=== PATIENT | female | born 1985 | race Caucasian/White ===

== ENCOUNTER 2020-09-12 19:07 | Inpatient (IN) | payer OTHER, SELFPAY ==
[~2020-09-12] VITALS: Ht 165.1 cm; Wt 86.6 kg
[2020-09-12 19:13] VITALS: BP 150/90
--- NOTE | 2020-09-12 19:16 | NUR ---
ERMD ASSESSED PATIENT IN TRIAGE. PATIENT AMBULATED TO [facility] WITH STEADY GAIT.
[2020-09-12] MEDS ORDERED: ALBUTEROL 0.083% 2.5 MG/3 ML NEBU INH ONE ×2 (19:20→20:05)
[2020-09-12] MEDS ORDERED: predniSONE 20 MG TAB PO ONE (19:20)
[2020-09-12] MEDS ORDERED: ALBUTEROL SULFATE/IPRATROPIU 3 ML SOL IH ONE (19:20)
--- NOTE | 2020-09-12 19:25 | NUR ---
PATIENT 34 Y/O FEMALE BIB SELF FOR C/O ADULT ASTHMA ATTACK. PER PATIENT INHALER IS INEFFECTIVE. PATIENT HAS HAD SOB X 1 DAY. PATIENT NOTED WITH EXPIRATORY WHEEZING THROUGH A/P BILAT LUNGS. O2SAT@ 97% ON RA. PATIENT DENIES CP. PATIENT 30 WEEKS . DENIES COMPLICATIONS WITH . SEE COMPLETE ASSESMENT FOR FUTHER DETAILS. MEDHX: ASTHMA ALLERGIES: NKA
--- NOTE | 2020-09-12 19:39 | NUR ---
RT AT BEDSIDE PROVIDING BREATHING TREATMENT.
[2020-09-12] MEDS ORDERED: MAG SULF 2000 MG/WATER PREMIX 50 ML IV ONE (20:15)
[2020-09-12 20:36] LABS: BASOPHILS % (AUTO) 0.3 % (0.0-2.0); EOSINOPHILS # (AUTO) 0.7 K/uL (0-0.4); EOSINOPHILS % (AUTO) 4.6 % (0.0-4.0); HEMATOCRIT 37.2 % (36-48); HEMOGLOBIN 12.5 g/dL (12.0-16.0); LYMPHOCYTES # (AUTO) 2.4 K/uL (2.5-16.5); LYMPHOCYTES % (AUTO) 16.3 % (20.5-51.1); MEAN CORPUSCULAR HEMOGLOBIN 29 pg (27-31); MEAN CORPUSCULAR HGB CONC 34 g/dL (33-37); MEAN CORPUSCULAR VOLUME 85.2 fL (80-94); MONOCYTES % (AUTO) 6.5 % (1.7-9.3); NEUTROPHILS # (AUTO) 10.8 K/uL (1.8-7.7); NEUTROPHILS % (AUTO) 72.3 % (42.2-75.2); PLATELET COUNT (AUTO) 291 K/uL (140-450); RED BLOOD CELL COUNT(AUTO) 4.37 MIL/uL (4.20-5.40); RED CELL DISTRIBUTION WIDTH 14.5 % (11.6-13.7); WHITE BLOOD COUNT (AUTO) 14.9 K/uL (4.8-10.8)
[2020-09-12 20:42] LABS: ANION GAP 15.6 (8-16); CARBON DIOXIDE 19.9 mmol/L (21-32); CREATININE 0.7 mg/dL (0.6-1.3); POTASSIUM 3.5 mmol/L (3.5-5.1)
--- NOTE | 2020-09-12 20:45 | NUR ---
L&D NURSE AT BEDSIDE AND PREPARING APTIENT FOR CONTINOUS FHT MONITOR. PATIEN REMAINS ONCARDIAC MONITOR. VSS. PATIENT TO RECIVE MAG SULFATE IV 2G. IV AITE REMAINS PATIENT.
[2020-09-12] MEDS ORDERED: KCL 20 MEQ/WATER INJ PREMIX 200 ML IV PRN (20:55)
[2020-09-12] MEDS ORDERED: ACETAMINOPHEN 325 MG TAB PO PRN (20:55)
[2020-09-12] MEDS ORDERED: MAG SULF 2000 MG/WATER PREMIX 50 ML IV PRN (20:55)
[2020-09-12] MEDS ORDERED: ONDANSETRON 4 MG/2 ML VIAL IVP PRN (20:55)
[2020-09-12] MEDS ORDERED: POTASSIUM CHLORIDE 10 MEQ TABER PO PRN (20:55)
[2020-09-12] MEDS ORDERED: MAGNESIUM OXIDE 400 MG TAB PO PRN (20:55)
[2020-09-12] MEDS ORDERED: ALBUTEROL 0.083% 2.5 MG/3 ML NEBU INH PRN (21:15)
[2020-09-12] MEDS ORDERED: DIPH25CA86 PO (21:35)
[2020-09-12] MEDS ORDERED: PRED1TAB2 PO (21:35)
[2020-09-12] MEDS ORDERED: PRON INH (21:35)
[2020-09-12] MEDS ORDERED: MONT10TA35 PO (21:35)
[2020-09-12] MEDS ORDERED: BECL10.62 IH (21:35)
--- NOTE | 2020-09-12 21:39 | NUR ---
PATIENT STILL NOTED WITH SLIGHT RESPIRATORY WHEEZING UPON EXPIRATON. RESPIRATIONS ARE EVEN AND UNLABORED. O2SAT@ 97% ON RA. PATIENT SKIN IS WARM AND DRY TO TOUCH. PATIENT STATES, "I FEEL SO MUCH BETTER NOW." PATIENT REMAINS ON TELE MONITOR AND TOCO MONITOR. L&D CHARGE NURSE AT BEDSIDE MONITORING FHT. PATIENT DENIES ANY PELVIC PAIN AT THIS TIME.
--- NOTE | 2020-09-12 22:20 | NUR ---
Patient will be admitted to care of . Admited to TELE. Will go to room 106B. Belongings list completed. Report to BRENDAN ANTHONY.
[2020-09-12 22:30] VITALS: BP 120/63
--- NOTE | 2020-09-12 22:30 | NUR ---
RECEIVED REPORT FROM ER NURSE. PATIENT IS ALERT ORIENTED X4, AWAKE, COOPERATVE, 30 WEEKS WITH DIAGNOSIS OF ASTHMA. HAD EPISODES OF SHORTNESS OF BREATH TODAY. RESPIRATION EVEN AND UNLABORED. NO DISTRESS NOTED. BOWEL SOUND PRESENT IN ALL FOUR QUADRANT. ON MONITORING. MRSA NARES SWAB DONE .ABDOMEN SOFT NON TENDER, LAST BM TODAYPLAN OF CARE WAS DISCUSSED. ALL SAFETY MEASURES IN PLACE. ORIENTED PT TO STAFF, ROOM. CALL LIGHT WITHIN REACH. VITAL SIGNS MONITORED. WILL CONTINUE TO MONITOR.
[2020-09-12] MEDS: methylPREDNISolone SS 40 MG/ML VIAL IVP SCH (23:45)
[2020-09-13] MEDS ORDERED: ALBUTEROL 0.083% 2.5 MG/3 ML NEBU INH PRN (00:35)
--- NOTE | 2020-09-13 00:39 | NUR ---
SPOKE WITH RT WHOM RECOMMENDS PT HAVE NEBULIZER TREATMENT Q4HRS INSTEAD OF Q 6HRS. CALLED LITIGATION COUNSEL MD AWAN SAID IT WAS OK TO CHANGE TIMES FROM 6HRS TO 4HRS.
[2020-09-13 04:00] VITALS: BP 103/64
[2020-09-13] MEDS: methylPREDNISolone SS 40 MG/ML VIAL IVP SCH ×2 (05:27→12:44)
[2020-09-13 06:41] LABS: HEMATOCRIT 38.4 % (36-48); HEMOGLOBIN 12.8 g/dL (12.0-16.0); LYMPHOCYTES # (AUTO) 0.8 K/uL (2.5-16.5); LYMPHOCYTES % (AUTO) 6.8 % (20.5-51.1); MEAN CORPUSCULAR HEMOGLOBIN 29 pg (27-31); MEAN CORPUSCULAR HGB CONC 33 g/dL (33-37); MEAN CORPUSCULAR VOLUME 86.9 fL (80-94); MONOCYTES # (AUTO) 0.1 K/uL (0.8-1.0); MONOCYTES % (AUTO) 1.2 % (1.7-9.3); NEUTROPHILS # (AUTO) 11.4 K/uL (1.8-7.7); PLATELET COUNT (AUTO) 301 K/uL (140-450); RED BLOOD CELL COUNT(AUTO) 4.42 MIL/uL (4.20-5.40); RED CELL DISTRIBUTION WIDTH 14.4 % (11.6-13.7); WHITE BLOOD COUNT (AUTO) 12.4 K/uL (4.8-10.8)
--- NOTE | 2020-09-13 07:15 | NUR ---
RECEIVED REPORT FROM NIGHT NURSE PATIENT IS AAOX4 ON ROOM AIR, AMBULATORY, SKIN INTACT, ON REGULAR DIET AND 30 WKS GESTATION. WITH RIGHT LOWER MONITORING BABY'S HR AT 150BPM, BREATHING TREATMENT AND NIGHT NURSE HELD HEPARIN PROPHYLAXIS. SAFETY MEASURES IN PLACE AND CALL LIGHT WITHIN REACH. WILL CONTINUE TO MONITOR.
[2020-09-13 07:44] LABS: ALBUMIN 2.7 g/dL (3.4-5.0); ANION GAP 18.3 (8-16); CARBON DIOXIDE 19.1 mmol/L (21-32); CREATININE 0.4 mg/dL (0.6-1.3); MAGNESIUM 2.2 mg/dL (1.8-2.4); POTASSIUM 4.4 mmol/L (3.5-5.1); TOTAL BILIRUBIN 0.7 mg/dL (0.0-1.0)
[2020-09-13 08:00] VITALS: BP 112/64
--- NOTE | 2020-09-13 08:19 | NUR ---
PATIENT HAS BEEN SCREENED AND CATEGORIZED LOW NUTRITION RISK. PATIENT WILL BE SEEN WITHIN 7 DAYS OF ADMISSION. 09/19/[address]
--- NOTE | 2020-09-13 08:45 | NUR ---
PATIENT VERBALIZES UN ABLE TO DRINK MILK LACTOSE INTOLERANCE OR ALLERGY.
--- NOTE | 2020-09-13 10:24 | NUR ---
SOCIAL WORK NOTE Patient's Orientation Unable To Assess Information Provided By HOWIE OTERO - SIGNIFICANT OTHER Comments SW WAS UNABLE TO MEET PATIENT AT BEDSIDE. SW COMPLETED ASSESSMENT WITH PATIENT'S SIGNIFICANT OTHER. Complaint Investigations Officer, Realtionship and Phone Number HOWIE OTERO SIGNIFICANT OTHER [phone] Healthcare Power of Executive Admin No Does Patient Have a POLST No Identifying Problems No Social Work Triggers Is A Social Work Consult Needed No Mandate Report Filed No Explanation Of Identifying Problems PATIENT IS A 34-YEAR-OLD FEMALE ADMITTED FOR ACUTE ASTHMA EXACERBATION. PATIENT HAS PMHX OF ASTHMA. PATIENT'S SIGNIFICANT OTHER REPORTED NO HX OF MENTAL HEALTH OR SUBSTANCE ABUSE. Admitted From Home Pre-Admission Level Of Functioning Status Independent/Ambulatory Prior Resources/Services Used In Last 12 Months No Prior Resources Used Prior DME No Prior DME Used Dialysis Comments N/A Living Situation Lives With Family House Patient Had Caregiver No Home Support No Caregiver Issues Financial Issues No Known Financial Issue Referral To The Financial Counselor Needed No Factors/Needs No D/C Needs Identified Pt/Rep Participated In Discharge Plan Yes Patient/Family Agress With Discharge Plan Yes Discharge Plan Comments TENTATIVE DISCHARGE PLAN IS FOR PATIENT TO RETURN HOME. DC Plan Status Initiated
--- NOTE | 2020-09-13 11:46 | NUR ---
INFORMED DR VELIZ THRU DR MARTIN ABOUT PATIENT BEING DISCHARGE TO HOME BY DR MILLER. DR VELIZ SAID OK TO DISCHARGE PATIENT IF STABLE.
--- NOTE | 2020-09-13 12:47 | NUR ---
DISCHARGE PLANNING: MANDO MADE FOLLOW UP APPOINTMENT WITH PATIENT'S PCP. MANDO CONTACTED DOCTORS OFFICE AND SPOKE WITH ESTELLE. PATIENT WILL SEE DR. ROSSANA GARCIA AT [address] [facility] [place] [address]. APPOINTMENT IS ON 09/20/2020 AT 08:40AM.
--- NOTE | 2020-09-13 12:56 | NUR ---
MEDICATION DUE GIVEN PT ABLE TO TOLERATE WELL.
--- NOTE | 2020-09-13 13:00 | NUR ---
DISCHARGED INSTRUCTION GIVEN TO PATIENT AT BEDSIDE. INSTRUCTED TO CONTINUE MEDICATIONS AND TO SEEK MEDICAL HELP IN CASE OF EMERGENCIES AND INSTRUCTED TO FOLLOW UP WITH PCP AFTER DISCHARGE. REMOVED ID BANDS AND IV INTACT AND NO BLEEDING. CHANGED TO OWN CLOTHES AND TOOK ALL HER BELONGINGS. ESCORTED TO FRONT LOBBY VIA WHEELCHAIR.PT IS DISCHARGED HOME. PT IS STABLE.
== END 2020-09-13 13:00 | disposition home or self-care (01) | DRG 566 ==
LOC: MED 19:07 → MTU 21:09
PROVIDERS: ADMIT Hospitalist; ATTEND Hospitalist
DX: O99.513 Diseases of the respiratory system complicating pregnancy, third trimester (principal); J45.901 Unspecified asthma with (acute) exacerbation; Z20.822 Contact with and (suspected) exposure to COVID-19; Z3A.30 30 weeks gestation of pregnancy
CPT/HCPCS: 36415; 80048; 80053; 83735; 85025; 87081; 94640; 96365; 99285; J2920; J3475; J7512; J7613

== ENCOUNTER 2020-11-07 14:56 | Inpatient (IN) | payer OTHER, SELFPAY ==
[~2020-11-07] VITALS: Ht 162.6 cm; Wt 84.8 kg
[~2020-11-07 14:56] MED LIST: BECL10.62 IH; DIPH25CA86 PO; MONT10TA35 PO; PRED1TAB2 PO; PRON INH
[2020-11-07 15:30] VITALS: BP 115/65
[2020-11-07] MEDS ORDERED: PNV91TAB10 PO (16:18)
[2020-11-07] MEDS ORDERED: METHYLERGONOVINE 0.2 MG/ML AMP IM PRN (17:05)
[2020-11-07] MEDS ORDERED: CARBOPROST 250 MCG/ML AMP IM PRN (17:05)
[2020-11-07] MEDS ORDERED: MORPHINE SULFATE 5 MG/ML VIAL IVP PRN (17:10)
[2020-11-07] MEDS ORDERED: ONDANSETRON 4 MG/2 ML VIAL IVP PRN (17:10)
[2020-11-07 17:22] LABS: BASOPHILS % (AUTO) 0.1 % (0.0-2.0); EOSINOPHILS % (AUTO) 0.1 % (0.0-4.0); HEMATOCRIT 38.9 % (36-48); HEMOGLOBIN 13.2 g/dL (12.0-16.0); LYMPHOCYTES % (AUTO) 7.6 % (20.5-51.1); MEAN CORPUSCULAR HEMOGLOBIN 29 pg (27-31); MEAN CORPUSCULAR HGB CONC 34 g/dL (33-37); MEAN CORPUSCULAR VOLUME 86.2 fL (80-94); MONOCYTES # (AUTO) 0.3 K/uL (0.8-1.0); MONOCYTES % (AUTO) 1.9 % (1.7-9.3); NEUTROPHILS % (AUTO) 90.3 % (42.2-75.2); PLATELET COUNT (AUTO) 283 K/uL (140-450); RED BLOOD CELL COUNT(AUTO) 4.51 MIL/uL (4.20-5.40); RED CELL DISTRIBUTION WIDTH 14.2 % (11.6-13.7); WHITE BLOOD COUNT (AUTO) 13.3 K/uL (4.8-10.8)
[2020-11-07 17:23] LABS: BILIRUBIN,URINE NEGATIVE (NEGATIVE); BLOOD, URINE NEGATIVE (NEGATIVE); COLOR,URINE YELLOW (YELLOW); LEUKOCYTE ESTERASE ,URINE 2+ (NEGATIVE); NITRITE, URINE NEGATIVE (NEGATIVE); UGLUCOSE NEGATIVE (NEGATIVE)
[2020-11-07 17:36] LABS: ANION GAP 16.4 (8-16); CARBON DIOXIDE 20.7 mmol/L (21-32); CREATININE 0.5 mg/dL (0.6-1.3); POTASSIUM 4.1 mmol/L (3.5-5.1)
[2020-11-07 17:37] LABS: APPEARANCE,URINE HAZY (CLEAR)
[2020-11-07] MEDS: MISOPROSTOL 25 MCG TAB VG SCH ×2 (17:38→23:40)
[2020-11-07 17:42] LABS: ALBUMIN 2.8 g/dL (3.4-5.0); TOTAL BILIRUBIN 0.7 mg/dL (0.0-1.0)
[2020-11-07 18:47] LABS: CALCIUM OXALATE CRYSTALS,UR 0-10 /HPF (None Seen); RBC,URINE NONE SEEN /HPF (0-5); WBC,URINE 0-5 /HPF (0-5)
[2020-11-07] MEDS: LACTATED RINGERS 1,000 ML IV SCH (23:39)
[2020-11-08] MEDS: LACTATED RINGERS 1,000 ML IV SCH ×4 (06:10→18:32)
--- NOTE | 2020-11-08 08:53 | NUR ---
PATIENT HAS BEEN SCREENED AND CATEGORIZED LOW NUTRITION RISK. PATIENT WILL BE SEEN WITHIN 7 DAYS OF ADMISSION. 11/14/[address]
[2020-11-08] MEDS ORDERED: OXYTOCIN 20 UNITS/LR PREMIX 1,000 ML IV ONE (09:18)
[2020-11-08] MEDS ORDERED: ROPIVACAINE 0.2%/NS PREMIX 200 ML EPI ONE (18:13)
[2020-11-08] MEDS ORDERED: AMPICILLIN 2,000 MG in NACL 0.9% 100 ML IV SCH (22:45)
[2020-11-08] MEDS ORDERED: AMPICILLIN 2,000 MG VIAL ONE (22:50)
[2020-11-09] MEDS: LACTATED RINGERS 1,000 ML IV SCH ×3 (02:17→17:48)
[2020-11-09] MEDS ORDERED: AMPICILLIN 1,000 MG in NACL 0.9% 50 ML IV SCH (04:00)
[2020-11-09] MEDS ORDERED: OXYTOCIN 20 UNITS/LR PREMIX 1,000 ML IV ONE (07:00)
[2020-11-09] MEDS: OXYTOCIN 20 UNITS in LACTATED RINGERS 1,000 ML IV SCH (07:32)
[2020-11-09] MEDS ORDERED: ROPIVACAINE 0.2%/NS PREMIX 200 ML EPI ONE (11:49)
[2020-11-09] MEDS ORDERED: AMPICILLIN 2,000 MG VIAL ONE (23:23)
[2020-11-10] MEDS ORDERED: TERBUTALINE 1 MG/ML VIAL SUBQ SCH (02:00)
[2020-11-10] MEDS ORDERED: AMPICILLIN 2,000 MG in NACL 0.9% 100 ML IV ONE (02:50)
[2020-11-10] MEDS: LACTATED RINGERS 1,000 ML IV SCH ×3 (03:25→21:30)
[2020-11-10] MEDS ORDERED: AMPICILLIN 1,000 MG VIAL ONE ×5 (03:55→21:26)
[2020-11-10] MEDS: AMPICILLIN 1,000 MG in NACL 0.9% 50 ML IV SCH ×2 (04:00→21:31)
[2020-11-10] MEDS ORDERED: ROPIVACAINE 0.2%/NS PREMIX 200 ML EPI ONE ×2 (05:14→21:10)
[2020-11-10] MEDS ORDERED: OXYTOCIN 20 UNITS/LR PREMIX 1,000 ML IV ONE (11:34)
[2020-11-10] MEDS: OXYTOCIN 20 UNITS in LACTATED RINGERS 1,000 ML IV SCH (11:47)
[2020-11-10] MEDS ORDERED: ALBUTEROL SULFATE/IPRATROPIU 3 ML SOL IH SCH (16:07)
[2020-11-10] MEDS ORDERED: MISOPROSTOL 200 MCG TAB ONE (16:30)
[2020-11-10] MEDS ORDERED: METHYLERGONOVINE 0.2 MG/ML AMP ONE (19:10)
[2020-11-10] MEDS ORDERED: LIDOCAINE 1% 500 MG/50 ML VIAL ONE (19:28)
[2020-11-10] MEDS ORDERED: LIDOCAINE MPF 1% 10 MG/ML VIAL INJ SCH (19:30)
[2020-11-10] MEDS ORDERED: ROPIVACAINE 0.2%/NS PREMIX 100 ML EPI SCH (21:30)
[2020-11-11] MEDS: LACTATED RINGERS 1,000 ML IV SCH (00:40)
[2020-11-11] MEDS ORDERED: AMPICILLIN 1,000 MG VIAL ONE (01:26)
[2020-11-11] MEDS: AMPICILLIN 1,000 MG in NACL 0.9% 50 ML IV SCH (01:32)
[2020-11-11] MEDS ORDERED: MISOPROSTOL 100 MCG TAB RC SCH (04:25)
[2020-11-11] MEDS ORDERED: BENZOCAINE/MENTHOL 20%-0.5% 60 GM CAN TP PRN (04:45)
[2020-11-11] MEDS ORDERED: METHYLERGONOVINE 0.2 MG TAB PO PRN (04:45)
[2020-11-11] MEDS ORDERED: OXYTOCIN 10 UNITS/ML VIAL IM PRN (04:45)
[2020-11-11] MEDS ORDERED: IBUPROFEN 600 MG TAB PO PRN (04:45)
[2020-11-11] MEDS ORDERED: METHYLERGONOVINE 0.2 MG/ML AMP IM PRN (04:45)
[2020-11-11] MEDS ORDERED: SIMETHICONE 80 MG TAB.CHEW PO PRN (04:45)
[2020-11-11] MEDS ORDERED: DOCUSATE SODIUM 100 MG GELCAP PO PRN (04:45)
[2020-11-11] MEDS ORDERED: IBUPROFEN 800 MG TAB PO PRN (04:45)
[2020-11-11] MEDS ORDERED: bisacodyL 5 MG TABEC PO PRN (04:45)
[2020-11-12 08:31] LABS: HEMATOCRIT 38.7 % (36-48); HEMOGLOBIN 13.1 g/dL (12.0-16.0)
== END 2020-11-12 22:22 | disposition home or self-care (01) | DRG 560 ==
LOC: MFCC 14:56 → MLD 11-09 07:26 → MFCC 11-11 07:35
PROVIDERS: ADMIT Obstetrics & Gynecology; ATTEND Obstetrics & Gynecology
PROC: 10E0XZZ Delivery of Products of Conception, External Approach (ICD-10-PCS; principal; 2020-11-11)
PROC: 10907ZC Drainage of Amniotic Fluid, Therapeutic from Products of Conception, Via Natural or Artificial Opening (ICD-10-PCS; 2020-11-11)
PROC: 00HU33Z Insertion of Infusion Device into Spinal Canal, Percutaneous Approach (ICD-10-PCS; 2020-11-11)
PROC: 3E0R3BZ Introduction of Anesthetic Agent into Spinal Canal, Percutaneous Approach (ICD-10-PCS; 2020-11-11)
DX: O23.43 Unspecified infection of urinary tract in pregnancy, third trimester (principal); O41.03X0 Oligohydramnios, third trimester, not applicable or unspecified; O99.52 Diseases of the respiratory system complicating childbirth; Z37.0 Single live birth; J45.909 Unspecified asthma, uncomplicated; Z3A.38 38 weeks gestation of pregnancy; O69.89X0 Labor and delivery complicated by other cord complications, not applicable or unspecified; Z20.822 Contact with and (suspected) exposure to COVID-19
CPT/HCPCS: 36415; 51702; 59409; 76815; 80053; 81001; 85018; 85025; 86592; 86886; 86900; 86901; 87086; 87653-90; J0290; J2001; J2210; J2405; J2590; J2795